=== PATIENT | male | born 1990 | race Caucasian/White ===

== ENCOUNTER 2020-05-17 09:11 | Emergency (ER) | payer OTHER ==
[~2020-05-17] VITALS: Ht 188 cm; Wt 76.8 kg
--- NOTE | 2020-05-17 09:16 | NUR ---
NIL X [phone]
[2020-05-17 09:18] VITALS: BP 135/87
--- NOTE | 2020-05-17 09:30 | NUR ---
THIS IS A 30 YO M WHO PRESENTS W/ LT ARM ABCESS. PT ADMITS TO IV DRUG USE IN THAT ARM. PT RESTING ON [place] W/ CALL LIGHT IN REACH, RESP EVEN AND UNLABORED, NADN. AWAITING ED EVAL.
[2020-05-17] MEDS ORDERED: LIDOCAINE-MPF 1%, 5ML ONE (09:40)
[2020-05-17] MEDS ORDERED: LIDOCAINE-MPF 1%, 5ML INFIL ONE (10:00)
== END 2020-05-17 10:37 | disposition home or self-care (01) ==
LOC: ED 09:48
DX: L02.414 Cutaneous abscess of left upper limb (principal)
CPT/HCPCS: 10060; 99283

== ENCOUNTER 2020-05-19 07:34 | Emergency (ER) | payer OTHER ==
[~2020-05-19] VITALS: Ht 188 cm; Wt 78.0 kg
[2020-05-19 07:38] VITALS: BP 117/77
[2020-05-19] MEDS ORDERED: NEOSPORIN OINT. PKT 1 PACKET ONE (08:03)
--- NOTE | 2020-05-19 08:34 | NUR ---
Patient given discharge instructions and they have confirmed that they understand the instructions. Patient ambulatory with steady gait.
== END 2020-05-19 08:34 | disposition home or self-care (01) ==
LOC: ED 08:10
DX: L02.414 Cutaneous abscess of left upper limb (principal); Z48.01 Encounter for change or removal of surgical wound dressing
CPT/HCPCS: 99283

== ENCOUNTER 2020-12-05 16:19 | Emergency (ER) | payer SELFPAY ==
[~2020-12-05] VITALS: Ht 188 cm; Wt 81.2 kg
[2020-12-05 16:22] VITALS: BP 141/76
--- NOTE | 2020-12-05 16:22 | NUR ---
DIRECTOR NON PROFIT: NA X 1
--- NOTE | 2020-12-05 18:07 | NUR ---
Patient given SPLINT/discharge instructions and rX, they have confirmed that they understand the instructions. Patient ambulatory with steady gait.
== END 2020-12-05 18:09 | disposition home or self-care (01) ==
LOC: ED 17:15
DX: S93.402A Sprain of unspecified ligament of left ankle, initial encounter (principal); S90.32XA Contusion of left foot, initial encounter; S20.212A Contusion of left front wall of thorax, initial encounter; F17.210 Nicotine dependence, cigarettes, uncomplicated; W19.XXXA Unspecified fall, initial encounter; Y93.89 Activity, other specified; Y92.89 Other specified places as the place of occurrence of the external cause; Y99.8 Other external cause status
CPT/HCPCS: 99284; 99406